=== PATIENT | male | born 1945 | race Caucasian/White ===

== ENCOUNTER 2017-11-15 07:23 | Emergency (ER) | payer MEDICARE, MEDICAID ==
[2017-11-15] MEDS ORDERED: cefTRIAXone 2 GM in Sodium Chloride 0.9% 100 ML IV ONE (07:54)
[2017-11-15] MEDS ORDERED: Azithromycin 500 MG in Sodium Chloride 0.9% 250 ML IV ONE (07:56)
[2017-11-15] MEDS ORDERED: Aspirin 325 mg EC PO ONE (07:58)
[2017-11-15] MEDS ORDERED: Pantoprazole 40 mg EC Tab PO STA (08:01)
[2017-11-15] MEDS ORDERED: Albuterol/Ipratropium Neb 3 ML AERS HHN ONE (08:05)
[2017-11-15] MEDS ORDERED: Acetaminophen 500 MG TAB PO ONE (08:07)
[2017-11-15] MEDS ORDERED: Guaifenesin DM 10 ML UDC PO ONE (08:11)
[2017-11-15] MEDS ORDERED: Pantoprazole 40 mg EC Tab PO ONE (08:17)
[2017-11-15] MEDS ORDERED: methylPREDNISolone SS 40 mg Vial ONE (08:18)
[2017-11-15] MEDS ORDERED: Acetaminophen 500 MG TAB ONE (08:18)
[2017-11-15 08:38] LABS: ALB/GLOB RATIO 0.9 (1.0-1.8); ALKALINE PHOSPHATASE 78 U/L (34-104); ANION GAP 10.2 (7.0-16.0); BILIRUBIN,TOTAL 0.5 mg/dL (0.3-1.0); BUN - UREA NITROGEN 18 mg/dL (7-25); CALCIUM SERUM 8.8 mg/dL (8.6-10.3); CARBON DIOXIDE 28.9 mEq/L (21.0-31.0); CHLORIDE 104 mEq/L (98-107); GLUCOSE 175 mg/dL (70-105); POTASSIUM SERUM 3.1 mEq/L (3.5-5.1); SGOT 24 U/L (13-39); SGPT/ALT 16 U/L (7-52); SODIUM SERUM 140 mEq/L (136-145); TOTAL PROTEIN,SERUM 8.7 gm/dL (6.0-8.3)
[2017-11-15 08:39] LABS: ANION GAP 10.1 (7.0-16.0); BUN - UREA NITROGEN 18 mg/dL (7-25); CALCIUM SERUM 8.7 mg/dL (8.6-10.3); CHLORIDE 104 mEq/L (98-107); GLUCOSE 175 mg/dL (70-105); POTASSIUM SERUM 3.1 mEq/L (3.5-5.1); SODIUM SERUM 140 mEq/L (136-145)
[2017-11-15 08:40] LABS: % BASOPHILS 0.2 % (0.0-2.0); % EOSINOPHILS 2.9 % (0.0-5.0); % LYMPHOCYTES 22.1 % (20.0-50.0); % MONOCYTES 14.8 % (2.0-10.0); EOSINOPHILE ABSOLUTE 0.2 Th/cmm (0.1-0.4); HEMOGLOBIN 13.5 gm/dL (12-16); LYMPHOCYTE ABSOLUTE 1.4 Th/cmm (1.5-3.0); MEAN CELL VOLUME 85.9 fl (80-99); MEAN CORPUSCULAR HEMOGLOBIN 28.9 pg (27.0-31.0); MEAN CORPUSCULAR HGB CONC 33.7 pg (28.0-36.0); MEAN PLATELET VOLUME 7.6 fl; MONOCYTE ABSOLUTE 0.9 Th/cmm (0.3-1.0); NEUTROPHILE ABSOLUTE 3.9 Th/cmm (1.8-8.0); PLATELET COUNT 219 Th/cmm (150-400); RED BLOOD COUNT 4.66 Mil/cmm (3.80-5.80); RED CELL DISTRIBUTION WIDTH 14.8 % (11.5-20.0)
[2017-11-15 08:41] LABS: WHITE BLOOD COUNT 6.4 Th/cmm (4.8-10.8)
[2017-11-15] MEDS ORDERED: methylPREDNISolone SS 40 mg Vial IVP SCH (09:00)
--- NOTE | 2017-11-15 09:23 | Diagnostic Imaging Report ---
Portable chest x-ray HISTORY: Cough The heart is enlarged. No focal pulmonary processes. No hilar or mediastinal abnormalities. IMPRESSION: 1. No acute focal pulmonary processes 2. Cardiomegaly
[2017-11-15] MEDS ORDERED: Guaifenesin DM 10 ML UDC ONE (09:50)
[2017-11-15 11:31] LABS: A1C % 7.8 % (4.0-6.0)
--- NOTE | 2017-11-15 13:24 | History & Physical ---
ADMIT DATE: 11/15/2017 HISTORY: Evaluating the ER evaluation and treatment urgently don. The patient is kept on bed #4. The patient has shortness of breath, brought in by the paramedics. The patient's chief complaint is shortness of breath, cough and difficulty in breathing for the past 5 days. The patient came with cough and difficulty in breathing. He says he has been a chronic smoker and smoked for many years. The patient was given triple antibiotics for this condition. The patient has not been working at the present moment. REVIEW OF SYSTEMS: The patient says that he was apparently fine 7 days ago, then he started having cough, shortness of breath, difficulty in breathing, bring up white to yellowish phlegm. The patient does not have any history of congestive heart failure, but no definite history of myocardial infarction. The patient has 2 stents in the heart that was put in by his physician. The patient does not have any angina pectoris, no acute myocardial infarction. The patient has enlarged heart. This was by the chest x-ray showing enlargement of the heart. There was no mediastinal abnormalities. No acute focal disease was seen. This was dictated by Dr. Damian Barajas. Thank you, Dr. Salgado for your prompt reading of the x-rays for our help in the Emergency Room. The patient's abdomen is soft, obese, benign, negative. Chest has bilateral scattered rales and rhonchi, a midline scar as mentioned earlier. Central nervous system was within normal limits. Lab workup came back showing white count of 2.9, perhaps a bone marrow is depressed or if there are any other etiologies that might need to be found out. If the white count is persistent, the patient may need a bone marrow evaluation to be done because of low white count being down whether the patient has any myeloid dysplasia, etc., Lymphocytes are 17.8, potassium was 3.1, sodium 140, chloride 104, CO2 28.9, anion gap is , glucose is 10.2, BUN is 18, creatinine is 1. Calcium is 18. Total protein is 8.8, albumin 4, total bilirubin 0.5, SGOT, SGPT all are within normal limits on the patient. The glucose is the only one that is a large, glucose was 175 and potassium was low at 3.1 and same thing, WBC was also low. Hematocrit was 40 and neutrophil percentage is 60%, monocytes 414.8. Troponin is 0.02, which is within normal limits. Magnesium is 1.9, which is normal limits. I looked at the electrocardiogram. 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 so looking at this EKG, it shows that there is evidence of old anteroseptal wall myocardial infarction of undetermined age. There is evidence of left atrial enlargement and minor nonspecific ST-T changes are seen. The patient does have coronary artery disease. He did have 2 stents placement done in the heart. FINAL DIAGNOSES: The patient has: 1. Chronic obstructive pulmonary disease with acute exacerbation. 2. Hypokalemia. 3. Neutropenia. 4. Old anteroseptal myocardial infarction. 5. Saucer shaped sternum. 6. Diabetes mellitus. 7. Cardiomegaly. The patient was felt he had some kind of devices, but nothing that was detected by me. Albumin level etc. all are found to be within normal limits. JOB# [id number]
--- NOTE | 2017-11-15 14:31 | ER Physician Documentation ---
DATE OF SERVICE: 11/15/2017 A 72-year-old male patient. We got the report of the chest x-ray showing the heart is enlarged. No focal pulmonary processes detected, no hilar or mediastinal abnormalities detected. The patient has some cardiomegaly and this was interpreted by Dr. Damian Barajas. Dr. Barajas, thank you again for all you have in this patient. We got some electrolyte results showing potassium to be 3.1, glucose to be 175 and albumin to be 4 and total protein is 8.7, hematocrit is 40. Troponin is 0.02, which is within normal limits. Magnesium is 1.9. So, in short things look good over here. White count is 2.9. The patient will be discharged to home today. The patient has an inhaler machine at home. He uses albuterol and Atrovent inhaler and he has this machine and occasionally he does need some steroids. I advised the to use very low doses of steroids in the form of like 5 mg a day after food along with a PPI Protonix either Prilosec, whichever is a cheaper and available they can use it and along with that they can take some probiotic or some yogurt to prevent superadded bacterial infections. The electrolytes, etc. are within normal limits except the potassium is 3.1, so we will give him some potassium at the present moment to bring it up and the will keep an eye on the . FINAL DIAGNOSES: Chronic obstructive pulmonary disease with acute exacerbation and bronchitis and the patient is discharged home. JOB# [id number]
--- NOTE | 2017-11-15 20:10 | History & Physical ---
ADMIT DATE: 11/15/2017 INDICATION: A 72-year-old male. The patient is a full code. History was obtained by talking to the paramedics who brought the patient, talking to the patient and talking to the triage nurse and below is the history. The patient lives in one of the senior living facilities and the patient has been having symptoms of shortness of breath, cough, difficulty in breathing for the past 1 week duration, gradually getting worse and hence, for that reason, paramedics were called and he was brought to the hospital and the triage nurse obtained the vital signs, which were temperature of 98 degrees, pulse of 85, respirations 22, blood pressure 188/86 mmHg. Oxygen saturation was ____, height of 5 feet 10 inches, weighing 240 pounds, to me she said that he is about 250 pounds. HISTORY OF PRESENT ILLNESS: The patient says that he is a known case of COPD. He has had asthma in the past. He has used bronchodilators in the past. The patient is also known to have atherosclerotic heart disease. He has had 2 stents inserted in his heart. He does not remember when and where it was done and what kind of stents were done. At least he is not taking any antiplatelet medication like Plavix, but he does take one aspirin a day. The patient has been given albuterol in the field by the paramedics. PAST MEDICAL HISTORY: The patient's past history includes that he had a history of CVA and he denied any history of CVA to me. He has a history of CVA. He is known to have hypertension. He is known to have diabetes mellitus, but the patient does not take any medication for diabetes mellitus. PAST SURGICAL HISTORY: Includes that he has had left knee joint surgery done in the past many years ago, does not remember the time. He needs a knee joint replacement surgery to be done in the right knee. His left lower extremity has some swelling from [id number]. The patient at the present moment cannot walk much without getting tired and shortness of breath. Other past surgical history includes the patient has a fracture in the left upper arm because of injury. The patient had a rib fracture while he was wrestling in the days. He broke his 3 ribs, each time 1 rib, so total 3 ribs. After that, he gave up the boxing or other physical strenuous activity of wrestling, etc. that he was doing. SOCIAL HISTORY: His past smoking history includes that he has smoked 2 packs of cigarettes a day since the age of 14 and gave up many years ago. He does not remember much. He does not remember getting admitted in the hospital. He does not remember whether he had an endotracheal tube inserted. He does not remember whether he had any flu or pneumonia or tetanus. CURRENT MEDICATIONS: I reviewed all his medications. The current medications list includes that the patient is taking losartan 100 mg once a day, aspirin 1 tablet once a day. The patient is taking Coreg 25 mg b.i.d. The patient is taking Norvasc 10 mg once a day. The patient is taking hydrochlorothiazide once a day. The patient is trying to show me his stent card that he said it was in the pocket, but he could not unfortunately find it. The patient has been on Atrovent mask. The patient's Emergency Room physician is Dr. Blayne Nguyen. Office phone number is [phone]. Relation guarantor's name is Sam Whitman. His home phone number is [phone], relation to patient is self. He is a retired person to notify. His , [place] [address], [place], [place] [address]; telephone number [phone]. Insurance information is the patient has [facility]. ALLERGIES: Does not have any allergies. REVIEW OF SYSTEMS: EYES: No history of double vision, blurring, blindness, but history of bilateral cataract surgery done in the past and all went fine and he is okay. CENTRAL NERVOUS SYSTEM: No history of TIA; stroke, at least to me he never said any stroke, to the nurse he said a stroke, so we will check it out. Perhaps, in the past, he had one surgery that is he had a subdural hematoma that was drilled through the anterior lobe area where I can see that there was a hole over there maybe about 4 mm size that might have given him temporarily some paralysis that might have recovered, but at the present moment because of his respiratory difficulty, it is difficult to evaluate his neuro evaluation in detail, but the patient can move both the upper and lower extremities. ENT: Appears to be normal. Hearing is normal. Pupils are normal. NECK: Veins are nondistended. Jugular venous pressure is normal. Thyroid gland is not enlarged. There is no evidence of any hyperthyroidism or hypothyroidism. Reflexes are all normal. CHEST: Reveals trachea to be central, somewhat scaphoid sternum and in the lower sternal area, there seems to be a scar around there. According to the patient, he never had any surgery done over there. Perhaps, it may be an injury during boxing, wrestling might have caused that to occur and that might also contribute somewhat to his dyspnea and COPD with exacerbation, but the main culprit is the age, smoking and the weather, and pollution, etc., but he is not smoking at the present moment. The patient has cough, shortness of breath, difficulty in breathing. He does not know whether he has influenza. He has bilateral scattered rales and rhonchi. ABDOMEN: Obese, otherwise benign and negative. No liver disease, no spleen disease, no diarrhea, no constipation. He had twice colonoscopic examination. HEART: The patient does not get angina pectoris. Does not get PND, orthopnea, dyspnea on exertion. BONES AND JOINTS: The patient had left knee joint surgery. 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 PHYSICAL EXAMINATION: VITAL SIGNS: As noted above. CENTRAL NERVOUS SYSTEM: Within normal limits. CHEST: Bilateral scattered rales and rhonchi in both the lung stevens. ABDOMEN: Obese, otherwise benign and negative. Liver, spleen not enlarged. No free fluid in the abdominal cavity. STERNUM: Sternal system is normal. HEART: Sounds appears to be normal. Fourth heart sound is heard, third heart sound is absent. CLINICAL IMPRESSION: The patient has presented with COPD with acute exacerbation, underlying pneumonitis cannot be excluded. The patient has been given antibiotic in the form of Zithromax and in the form of Rocephin and breathing treatment has been ordered. The patient has been given other medications. OTHER DIAGNOSES: Diabetes, hypertension, hypercholesterolemia, chronic obstructive pulmonary disease, emphysema, history of three rib fractures, left knee joint replacement done in the past, right shoulder arthritis done in the past. The patient has mild obesity and otherwise benign. FAMILY HISTORY: Benign and negative. The patient is . and 3 children, lives at home. Parents are alive and well. PLAN: Once we get the results of the labs, x-ray, EKG, etc., I will re-dictate the last part again. This is the first portion. JOB# [id number]
== END 2017-11-15 12:21 | disposition home or self-care (01) ==
LOC: ER 07:23
DX: J44.1 Chronic obstructive pulmonary disease with (acute) exacerbation (principal); J40 Bronchitis, not specified as acute or chronic; E87.6 Hypokalemia; D70.9 Neutropenia, unspecified; I25.2 Old myocardial infarction; I51.7 Cardiomegaly
CPT/HCPCS: 99285; 96365; 96368; 93005; 71045; 84484; 36415; 36416; 82948; 84443; 84153; 86141; 85025; 83036; 83735; 80053; 80048; Z7610; J0696; J0456; J2920